=== PATIENT | female | born 1990 | race Caucasian/White ===

== ENCOUNTER 2020-02-11 08:18 | Outpatient (CLI) | payer OTHER, SELFPAY ==
--- NOTE | ~2020-02-11 | US_ITS ---
EXAMINATION: US pelvic complete w TV DATE: 02/11/2020 10:33 INDICATION: Menometrorrhagia TECHNIQUE: Multiple transabdominal and endovaginal sonographic images of the pelvis were obtained. COMPARISON: None. FINDINGS: The uterus measures 5.5 x 3.5 x 4.1 cm. The IUD is in expected position. The endometrial co mplex measures 6 mm. The right ovary measures 3.9 x 1.8 x 3.8 cm. The left ovary measures 3.1 x 1.7 x 3.0 cm. There is normal vascular flow in the ovaries. There is no free fluid in the pelvis. IMPRESSION: 1. No sonographic correlate for the patient's symptoms. Reviewed, dictated and finalized at location A.
[2020-02-11 08:42] LABS: Hematocrit 46.2 % (35.0-49.0); Hemoglobin 15.9 g/dL (12.0-15.0); Mean Corpuscular HGB Conc 34.4 g/dL (32.0-36.0); Mean Corpuscular Hemoglobin 33.9 pg (27.0-31.0); Mean Corpuscular Volume 98.5 fL (78.0-102.0); Mean Platelet Volume 10.5 fl (9.2-11.8); Platelet Count Result 285 K/mm3 (150-420); Red Blood Count 4.69 M/mm3 (4.20-5.40); Red Cell Distribution Width 12.7 % (11.6-14.4); White Blood Count 8.5 K/mm3 (4.8-10.8)
[2020-02-11 09:20] LABS: Alanine Aminotransferase 33 U/L (14-59); Albumin Level 4.1 g/dL (3.4-5.0); Alkaline Phosphatase 83 U/L (46-116); Anion Gap 16.5 mmol/L (7-16); Aspartate Amino Transferase 18 U/L (15-37); Bilirubin,Total 0.5 mg/dL (0.00-1.00); Blood Urea Nitrogen 9 mg/dL (7-18); Calcium 9.5 mg/dL (8.5-10.1); Carbon Dioxide 26 mmol/L (21-32); Chloride 103 mmol/L (98-108); Estimated Glomerular Filt Rate > 60; Glucose 86 mg/dL (70-99); Osmolality Calculated 289 mOsm/kg (285-295); Potassium 4.5 mmol/L (3.5-5.1); Sodium 141 mmol/L (136-145); Total Protein 7.6 g/dL (6.4-8.2)
[2020-02-11 10:19] LABS: Glucose 1 Hour 134 mg/dL (<180)
[2020-02-11 10:51] LABS: Glucose 2 Hour 145 mg/dL (<155)
[2020-02-11 11:06] LABS: Glucose Fasting 86 mg/dL (70-99)
[2020-02-14 12:20] LABS: DHEA-Sulfate 342 mcg/dL (18-391)
[2020-02-14 16:46] LABS: Testosterone Free 14.7 pg/mL (0.1-6.4); Testosterone Total 103 ng/dL (2-45)
== END 2020-02-11 08:19 | disposition home or self-care (01) ==
PROVIDERS: PCP Family Medicine; Visit Provider Obstetrics & Gynecology
DX: R63.5 Abnormal weight gain (principal); E28.2 Polycystic ovarian syndrome; N92.1 Excessive and frequent menstruation with irregular cycle
CPT/HCPCS: 36415; 76830; 76856; 80053; 82627; 82951; 83498; 84402; 84403; 84443; 85027

== ENCOUNTER 2020-06-03 08:48 | Outpatient (CLI) | payer OTHER, SELFPAY ==
[2020-06-08 16:19] LABS: Testosterone Free 4.6 pg/mL (0.1-6.4); Testosterone Total 52 ng/dL (2-45)
== END 2020-06-03 08:49 | disposition home or self-care (01) ==
LOC: CHSLAB 08:51
PROVIDERS: PCP Obstetrics & Gynecology; Visit Provider Obstetrics & Gynecology
DX: E28.2 Polycystic ovarian syndrome (principal)
CPT/HCPCS: 36415; 84402; 84403

== ENCOUNTER 2022-04-12 19:46 | Emergency (ER) | payer OTHER, SELFPAY ==
--- NOTE | ~2022-04-12 | CT_ITS ---
EXAMINATION: CT abdomen pelvis wo con DATE: 04/12/2022 21:21 INDICATION: RLQ abd pain. N/V TECHNIQUE: Computed tomography (CT) of the abdomen and pelvis was performed without intravenous contr ast. Automated exposure control and iterative reconstruction technique were employed. The dose-length product was 410.19 mGy-cm. COMPARISON: 08/15/16. FINDINGS: Lower thorax: Unremarkable Liver: Normal. Biliary/Gallbladder: Gallbladder is absent. No bile duct dilation. Pancreas: No mass or duct dilation. Spleen: Normal. Adrenals:No mass. Kidneys: No mass, stone, or hydronephrosis. GI tract: No small or large bowel dilation. Dilated, inflammed appendix. Mesentery/Peritoneum: No ascites, mass, or free air. Retroperitoneum: No mass. Pelvis: 6.9 cm simple left ovarian cyst, otherwise the pelvic organs are within normal limits. Soft Tissues: Soft tissues and body wall unremarkable. Bones: No acute osseous finding. IMPRESSION: Acute appendicitis. 6.9 cm left ovarian cyst, recommend outpatient follow-up pelvic ultrasound in 6-1 2 weeks. Reviewed, dictated and finalized at location K. IMPRESSION: Acute appendicitis. 6.9 cm left ovarian cyst, recommend outpatient follow-up pe lvic ultrasound in 6-12 weeks.
[2022-04-12 20:06] VITALS: BP 145/87; PULSE 98; RESP 17; TEMP 36.8; O2SAT 98
[2022-04-12 20:50] LABS: Basophils Absolute Auto 0.03 K/mm3 (0.00-0.10); Basophils Percent Auto 0.2 % (0.0-1.0); Eosinophils Absolute Auto 0.11 K/mm3 (0.02-0.50); Eosinophils Percent Auto 0.6 % (1.0-6.0); Hematocrit 41.9 % (35.0-49.0); Hemoglobin 14.3 g/dL (12.0-15.0); Immature Granulocyte Absolute 0.12 K/mm3 (0.00-0.00); Immature Granulocyte Percent A 0.7 % (0.0-0.0); Lymphocytes Absolute Auto 1.88 K/mm3 (1.10-4.50); Lymphocytes Percent Auto 10.2 % (18.0-42.0); Mean Corpuscular HGB Conc 34.1 g/dL (32.0-36.0); Mean Corpuscular Hemoglobin 34.1 pg (27.0-31.0); Mean Platelet Volume 10.1 fl (9.2-11.8); Monocytes Absolute Auto 1.19 K/mm3 (0.10-0.90); Monocytes Percent Auto 6.5 % (2.0-11.0); Neutrophils Absolute Auto 15.1 K/mm3 (1.7-7.2); Neutrophils Percent Auto 81.8 % (50.0-70.0); Platelet Count Result 292 K/mm3 (150-420); Red Blood Count 4.19 M/mm3 (4.20-5.40); Red Cell Distribution Width 12.1 % (11.6-14.4); White Blood Count 18.4 K/mm3 (4.8-10.8)
[2022-04-12 21:04] LABS: Alanine Aminotransferase 17 U/L (14-59); Albumin Level 3.5 g/dL (3.4-5.0); Alkaline Phosphatase 74 U/L (46-116); Anion Gap 7 mmol/L (8-16); Aspartate Amino Transferase 11 U/L (15-37); Bilirubin,Total 0.3 mg/dL (0.00-1.00); Blood Urea Nitrogen 7 mg/dL (7-18); Calcium 8.7 mg/dL (8.5-10.1); Carbon Dioxide 25 mmol/L (21-32); Chloride 104 mmol/L (98-108); Estimated CRCL calculation 85 ml/min; Estimated Glomerular Filt Rate > 60; Glucose 121 mg/dL (70-99); Lipase 94 U/L (73-393); Osmolality Calculated 281 mOsm/kg (285-295); Potassium 3.7 mmol/L (3.5-5.1); Sodium 136 mmol/L (136-145)
[2022-04-12] MEDS: SODIUM CHLORIDE 0.9% IV 1,000 ML 999 ML IV CONT (21:06)
[2022-04-12 21:07] LABS: SPREG INTERNAL CONTROL Positive; Serum Qual hCG Negative
[2022-04-12] MEDS: PANTOPRAZOLE SODIUM IV 40 MG VIAL IV PUSH (21:07)
[2022-04-12] MEDS: KETOROLAC (*BKC) 60 MG/2 ML VIAL IM (21:08)
[2022-04-12] MEDS: ONDANSETRON INJ 4 MG/2 ML VIAL IV PUSH (21:08)
[2022-04-12 21:09] LABS: Lactic Acid Reflex 0.8 mmol/L (0.4-2.0)
[2022-04-12 21:41] LABS: Add Urine Microscopic? NO; Appearance Urine Clear (Clear); Bilirubin Urine Negative (Negative); Blood Urine Negative (Negative); Color Urine Light Yellow (Yellow); Glucose Urine UA Negative (Negative); Ketones Urine Negative (Negative); Leukocyte Esterase Ur Negative LEU/UL (Negative); Nitrate Urine Negative (Negative); Protein Urine Negative (Negative); Urobilinogen Urine 0.2 mg/dL (0.2-1.0); pH Urine 6.5 (5.0-8.0)
--- NOTE | 2022-04-12 22:17 | PC.NURSE ---
nasal covid swab sent to lab
[2022-04-12 22:34] VITALS: BP 125/75; PULSE 86; RESP 17; O2SAT 97
[2022-04-12 22:45] VITALS: BP 114/77; PULSE 85; RESP 17; O2SAT 98
--- NOTE | 2022-04-12 22:51 | ED.ABDPAIN ---
HPI - Abdominal Pain General Chief Complaint: Abdominal Pain Stated Complaint: stomach pain/R lower side/nauseous/freezing Time Seen by Provider: 04/12/22 19:50 Source: patient and RN notes reviewed Mode of arrival: ambulatory Limitations: no limitations History of Present Illness MD elicited complaint: abdominal pain (RLQ) Pertinent past history: none Onset (ago): hour(s) (12) Pain Consistency: constant Location: RLQ Severity: moderate Pain scale (0-10): 7 Quality: cramping, aching and dull Radiation: none Migration to: suprapubic Exacerbating factors: nothing Relieving factors: nothing Associated symptoms: nausea, diarrhea and chills Related Data Patient : No Allergies Allergy/AdvReac Type Severity Reaction Status Date / Time No Known Allergies Allergy Verified 04/12/22 20:05 Review of Systems Review of Systems: All systems reviewed & are unremarkable except as noted in HPI and below Constitutional: Constitutional: Reports no additional constitutional complaints Eyes: Eyes: Reports no additional eye complaints ENT: Reports system reviewed and no additional complaints, except as documented Cardiovascular: Cardiovascular: Reports no additional cardiovascular complaints Respiratory: Respiratory: Reports no additional respiratory complaints Gastrointestinal: Gastrointestinal: Reports abdominal pain (RLQ) Genitourinary: Genitourinary: Reports no additional female genitourinary complaints Musculoskeletal: Musculoskeletal: Reports no additional musculoskeletal complaints Integumentary/Breasts: Skin/Breast: Reports system reviewed and no additional complaints, except as docu Neurologic: Reports system reviewed and no additional complaints, except as documented Psychiatric: Psychiatric: Reports no additional psychiatric complaints Endocrine: Endocrine: Reports no additional endocrine complaints Hematologic/Lymphatic: Hematologic/Lymphatic: Reports no additional hematologic/lymphatic complaints Allergic/Immunologic: Allergic/Immunologic: Reports no additional allergic/immunologic complaints [facility] Past Medical History Medical History Acute appendicitis Encounter for IUD insertion 10/21/10 Paragard insertion 07/28/16 Paragard insertion Encounter for IUD removal 04/21/14 Paragard removal 03/09/20 Paragard removal Gestational diabetes Kidney infection Pre-eclampsia Surgical History Surgical History History of 11/04/05 primary c/s--severe PIH/oligohydramnios/IUGR 05/18/16 rpt c/s--gestational diabetes History of cholecystectomy (~2006) History of tonsillectomy (~1999) Social History Social History Smoking packs per day: 0.75 Smoking cigarettes per day: 15.0 Smoking status: Current some day smoker ( not interested at this point an intervention. 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 Gender identity (if verbalized by the patient): Female Sexual Orientation (if Verbalized by the Patient): Straight or Heterosexual Exam Const: General: no acute distress Nutritional Appearance: well nourished Orientation/consciousness: patient oriented x3 Limitations: no limitations HENMT: Head: normal to inspection Ears: external ears normal, TM's normal bilaterally and EAC's normal General nose exam: Normal external nose present and Normal nares present Face and sinus: normal facial exam and sinuses nontender Mouth: Yes Normal oral and palatal mucosa present and Yes moist mucous membranes Teeth and gingiva: dentition
[2022-04-12 22:57] LABS: SARS-CoV-2 RNA PCR Negative (Negative)
[2022-04-12 23:00] VITALS: BP 129/82; PULSE 85; RESP 16; O2SAT 97
--- NOTE | 2022-04-12 23:08 | PC.NURSE ---
pt refusing to be transported to [facility] via Ambulance and wants to take a private vehicle. this staff member discussed the possible hazards of not being transported by ambulance. this staff member explained that the pt must remain NPO (nothing to eat or drink), her IV would be removed, and there is a possibility of sever complications developing from her diagnosis of an acute appendicitis. Pt's have a family friend who will transport her from [facility] to [facility] using a private vehicle.
[2022-04-13] VITALS: BP 115/72; PULSE 80; RESP 16; O2SAT 96
[2022-04-13 00:35] VITALS: BP 119/68; PULSE 70; RESP 16; TEMP 36.3; O2SAT 96
== END 2022-04-13 00:41 | disposition short-term general hospital (02) ==
PROVIDERS: Emergency Provider Emergency Medicine; PCP Family Medicine
DX: K35.80 Unspecified acute appendicitis (principal); Z20.822 Contact with and (suspected) exposure to COVID-19
CPT/HCPCS: 36415; 74176; 80053; 81003; 83605; 83690; 84703; 85025; 96361; 96365; 96372; 96375; 99285; C9113; C9803; J0696; J1885; J2405; J7030; U0003; U0005

== ENCOUNTER 2022-04-13 01:27 | Observation (INO) | payer OTHER, SELFPAY ==
[2022-04-13] VITALS (10 sets, daily range): BP systolic 115–142; BP diastolic 64–82; PULSE 58–97; RESP 16–26; TEMP 36.2–36.7; O2SAT 95–99; BMI 29.9
[2022-04-13] MEDS: SODIUM CHLORIDE 0.9% IV 1,000 ML 100 ML IV CONT ×2 (02:12→13:27)
--- NOTE | 2022-04-13 02:28 | ADMGEN ---
This patient, Fanny Jimenez, was admitted to [facility] Surg Room 321-01. Patient/family oriented to hospital policies and general routines including ID bracelet, bed and alarms, visiting hours, pain management, procedures, bathroom and other care routines, personal items, smoking policy, room service/diet, and visiting hours. Information on how to activate the Rapid Response Team has been discussed. Patient/Family are encouraged to report perceived risks to care and to ask questions if they do not understand what they are told or what they should do.
[2022-04-13 06:52] LABS: Hemoglobin 12.9 g/dL (12.0-15.0); Mean Corpuscular HGB Conc 33.1 g/dl (32-36); Mean Corpuscular Hemoglobin 33.2 pg (26-34); Mean Corpuscular Volume 100.5 fl (80-100); Mean Platelet Volume 10.2 fl (7.4-10.4); Platelet Count Result 265 k/mm3 (150-375); Red Blood Count 3.88 M/mm3 (4.2-5.4); Red Cell Distribution Width 12.5 % (11.5-14.5)
[2022-04-13 07:05] LABS: Anion Gap 6 mmol/L (8-16); Blood Urea Nitrogen 6 mg/dL (7-17); Calcium 8.5 mg/dL (8.4-10.2); Carbon Dioxide 22 mmol/L (22-30); Chloride 109 mmol/L (98-107); Estimated CRCL calculation 87 ml/min; Estimated Glomerular Filt Rate > 60; Glucose 89 mg/dL (65-110); Potassium 3.5 mmol/L (3.4-5.0); Sodium 137 mmol/L (137-145)
--- NOTE | 2022-04-13 10:07 | PM.IMHP ---
H&P: HPI History of Present Illness Date/Time: 04/13/22 09:07 Chief Complaint: RLQ abdominal pain Narrative: This is a 31-year-old woman who presented to [place] ED last night with complaints of right lower quadrant abdominal pain. She reports having more mild episodes of cramping right lower quadrant abdominal pain over the past year. Pain would last for 1 day and then resolve, therefore she never tried to seek medical attention for those episodes of pain. Yesterday, around 1:00 p.m., she developed sharp, more severe right lower quadrant abdominal pain than the other episodes. This was aggravated by coughing and movement. She had associated nausea and dry heaving. Denies fever or chills. She then went to the ER for further evaluation. CT scan of the abdomen and pelvis showed acute appendicitis with no evidence of perforation, and a 6.9 cm left ovarian cyst. [place] [id number]. Serum HCG negative. Our service was contacted by the ED physician and the patient was directly transferred to [place] for surgical evaluation of acute appendicitis. She is now seen on the medical floor. She continues to have right lower quadrant abdominal pain that is currently being controlled with analgesics. No nausea at this time. No other complaints at this time. She has had 2 deliveries and a laparoscopic cholecystectomy in the past. Review of Systems Review of Systems: All systems reviewed & are unremarkable except as noted in HPI and below Constitutional: Constitutional: Reports as per HPI, Reports no additional constitutional complaints, Denies chills, Denies fatigue, Denies fever(s), Reports headache(s) and Denies weakness Eyes: Eyes: Reports no additional eye complaints and Denies change in vision ENT: Reports system reviewed and no additional complaints, except as documented and Reports Normal hearing present Cardiovascular: Cardiovascular: Reports no additional cardiovascular complaints, Denies chest pain and Denies leg edema Respiratory: Respiratory: Reports no additional respiratory complaints, Denies cough and Denies dyspnea Gastrointestinal: Gastrointestinal: Reports as per HPI, Reports no additional gastrointestinal complaints, Reports abdominal pain, Denies melena, Denies hematochezia, Denies change in bowel habits, Denies change in stool character, Denies diarrhea, Reports nausea and Denies vomiting Genitourinary: Genitourinary: Reports no additional female genitourinary complaints, Denies hematuria and Denies dysuria Musculoskeletal: Musculoskeletal: Reports no additional musculoskeletal complaints Integumentary/Breasts: Skin/Breast: Reports system reviewed and no additional complaints, except as docu Neurologic: Reports system reviewed and no additional complaints, except as documented, Denies dizziness, Denies focal weakness, Denies numbness and Denies tingling PMFSH Past Medical History Medical History (Updated 04/13/22 @ 10:16 by MECCA Fritz) Encounter for IUD insertion 10/21/10 Paragard insertion 07/28/16 Paragard insertion Encounter for IUD removal 04/21/14 Paragard removal 03/09/20 Paragard removal Gestational diabetes Kidney infection Pre-eclampsia Surgical History Surgical History History of 11/04/05 primary c/s--severe PIH/oligohydramnios/IUGR 05/18/16 rpt c/s--gestational diabetes History of cholecystectomy (~2006) History of tonsillectomy (~1999) Family History Family History Other No pertinent family history Social History Social History Smoking packs per day: 0.5 Smoking cigarettes per day: 10.0 Years smoked: 16 Smoking pack-years: 8.00 Smoking status: Heavy tobacco smoker Tobacco type: cigarettes Second hand tobacco smoke exposure: Yes Alcohol int
--- NOTE | 2022-04-13 12:14 | WPDANESEPPF ---
Anes - Initial Pre Proc Eval Procedure: Operation Date: 04/13/22 15:30 Proposed Procedures p Laparoscopic Appendectomy; Possible Open - Cathy Morton MD Date/Time: 04/13/22 12:14 Surgeon: Cathy Morton MD Pre Op Diagnosis: Acute Appendicitis Patient Data Age: 31 Gender: F Height: 1.6 m Weight: 76.6 kg Last Vital Signs Temp 36.6 C 04/13/22 05:37 Pulse 81 04/13/22 05:37 Resp 18 04/13/22 05:37 BP 115/64 04/13/22 05:37 Pulse Ox 99 04/13/22 05:37 O2 Del Method Room Air 04/13/22 08:00 Allergies Allergy/AdvReac Type Severity Reaction Status Date / Time No Known Allergies Allergy Verified 04/12/22 20:05 Home Medications Medication Instructions Recorded Confirmed Type norgestimate 0.25 mg-ethinyl 1 tablet PO DAILY #84 tabs 04/11/22 04/13/22 Rx estradiol 35 mcg tablet (Sprintec (28)) Laboratory Tests 04/13/22 04/13/22 06:27 06:27 WBC 12.0 K/mm3 H K/mm3 (4.5-10.0) RBC 3.88 M/mm3 L M/mm3 (4.2-5.4) Hgb 12.9 g/dL g/dL (12.0-15.0) Hct 39.0 % % (37.0-47.0) MCV 100.5 fl H fl (80-100) MCH 33.2 pg pg (26-34) MCHC 33.1 g/dl g/dl (32-36) RDW 12.5 % % (11.5-14.5) Plt Count 265 k/mm3 k/mm3 (150-375) MPV 10.2 fl fl (7.4-10.4) Sodium 137 mmol/L mmol/L (137-145) Potassium 3.5 mmol/L mmol/L (3.4-5.0) Chloride 109 mmol/L H mmol/L (98-107) Carbon Dioxide 22 mmol/L mmol/L (22-30) Anion Gap 6 mmol/L L mmol/L (8-16) BUN 6 mg/dL L mg/dL (7-17) Creatinine 0.80 mg/dL mg/dL (0.7-1.0) Estim Creat Clear Calc 87 ml/min ml/min Estimated GFR > 60 (59 - ) Glucose 89 mg/dL mg/dL (65-110) Calcium 8.5 mg/dL mg/dL (8.4-10.2) Patient hx anesthesia problems: none Family hx anesthesia problems: none Results Review: All pre-operative results and documents have been reviewed as part of the pre-operative evaluation. [facility] Past Medical History Medical History (Updated 04/13/22 @ 10:16 by MECCA Fritz) Encounter for IUD insertion 10/21/10 Paragard insertion 07/28/16 Paragard insertion Encounter for IUD removal 04/21/14 Paragard removal 03/09/20 Paragard removal Gestational diabetes Kidney infection Pre-eclampsia Surgical History Surgical History History of 11/04/05 primary c/s--severe PIH/oligohydramnios/IUGR 05/18/16 rpt c/s--gestational diabetes History of cholecystectomy (~2006) History of tonsillectomy (~1999) Family History Family History Other No pertinent family history Social History Social History Smoking packs per day: 0.5 Smoking cigarettes per day: 10.0 Years smoked: 16 Smoking pack-years: 8.00 Smoking status: Heavy tobacco smoker Tobacco type: cigarettes Second hand tobacco smoke exposure: Yes Alcohol intake: never Substance use: never Substance use type: does not use Additional living arrangements comments: single/ same partner for 12 years 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 Gender identity (if verbalized by the patient): Female Sexual Orientation (if Verbalized by the Patient): Straight or Heterosexual Spiritual care concerns: No Anes - Eval Final PreProcedure Day of Procedure 04/13/22 12:14 Patient weight: overweight Heart: regular rate and rhythm Lungs: clear to auscultation and normal air movement Airway: Mallampati scale class II Neurological: alert and oriented Last oral intake: >/= 8 hours ASA classification: II Emergent: no Anesthetic plan: proceed Anesthesia type and monitoring: general ETT Results Review: All pre-operative results and documents have been reviewed as part of the pre-operative evaluation. Informed
[2022-04-13] MEDS: LACTATED RINGERS 1,000 ML 30 ML IV CONT (14:53)
[2022-04-13] MEDS: KETOROLAC 15 MG/ML VIAL (*BKC) IV PUSH (15:00)
--- NOTE | 2022-04-13 15:01 | WPDHPUPDATE1 ---
History and Physical Update Update Date/Time: 04/13/22 15:01 History and Physical has been reviewed, including an updated exam of the patient. There are NO changes in the patient's condition. Risks, benefits, and alternatives have been discussed and questions answered. Patient agrees to proceed with procedure.
--- NOTE | 2022-04-13 16:43 | W.PM.PROC2 ---
Procedure Note - Detailed Date of Procedure 04/13/22 Pre-op Diagnosis Acute Appendicitis Post-op Diagnosis Same Procedure Performed laparoscopic appendectomy Surgeon Cathy Morton MD Anesthesia General Indications 31-year-old female presenting to the hospital with acute appendicitis. Findings acute appendicitis no evidence of perforation Description of Procedure The patient was taken to the operating room and placed in the supine position. After adequate induction of general anesthesia, the patient was prepped and draped in the normal sterile fashion. A time-out was then done to verify the patient's identity, as well as the procedure being performed. I began by making a 5 mm incision in the infraumbilical region, through this a Veress needle was placed in the peritoneal cavity. CO2 gas was then insufflated and after adequate pneumoperitoneum was achieved the Veress needle was removed. Then placed a 5 mm Optiview trocar under direct visualization into the peritoneal cavity. I then insufflated through this trocar site and the endoscope was placed into the trocar. Under direct visualization, placed 2 further 5 mm suprapubic port as well as an additional 12 mm port in the left lower abdomen. At this point identified the cecum, I retracted the cecum both medially and superiorly allowing me to expose the appendix. The appendix was noted to be dilated and inflamed. I then was able to locate the base of the appendix with the cecum. I created a window with the [place] dissector between the appendix itself and the mesoappendix. I then transected the mesoappendix with a white vascular staple load. Of note, there was a small arterial bleeder at the staple line. I was able to control this with cautery. The Endo-PARUL was then reloaded with a blue staple load and I transected the base of the appendix. Once the specimen was completely detached, an endo-pouch was placed into the 12 mm port site and the specimen was removed through the endo-pouch. The appendiceal specimen will be sent to pathology for further review. I then copiously irrigated the right lower quadrant. Hemostasis was noted at both staple lines no other pathology was seen in this area. I then moved the camera to the suprapubic port to check our its port of entry. No iatrogenic injury or other pathology was noted in the upper abdomen. I then closed the 12 mm port site with a Rey code and 0 Vicryl suture under direct visualization. At this point, the abdomen was desufflated and all ports were removed. All port sites were closed with 4 Monocryl subcuticular suture. Dermabond was placed on all wounds. The patient tolerated the procedure well and was extubated in the operating room postop. She will be sent to the recovery room in stable condition. Estimated Blood Loss 25 Urine Output 450 Drains No Packing No Pathology Yes Complications No immediate complications Condition Stable Disposition PACU [facility] Billing Surgery - Charge Forward: Surgery Billing
== END 2022-04-13 19:39 | disposition home or self-care (01) ==
PROVIDERS: Admitting Provider Surgery; PCP Family Medicine; Visit Provider Surgery
PROC: 0DTJ4ZZ Resection of Appendix, Percutaneous Endoscopic Approach (ICD-10-PCS; CPT 44970; principal; 2022-04-13 15:30)
DX: K35.80 Unspecified acute appendicitis (principal); N83.202 Unspecified ovarian cyst, left side; F17.210 Nicotine dependence, cigarettes, uncomplicated; E66.3 Overweight; Z68.29 Body mass index [BMI] 29.0-29.9, adult; Z79.3 Long term (current) use of hormonal contraceptives
CPT/HCPCS: 44970; 36415; 80048; 85027; 88304; 96361; 96365; 96375; G0378; G0379; J0131; J1100; J1885; J2250; J2405; J2543; J2704; J2710; J3010; J7030; J7120

== ENCOUNTER 2022-05-04 12:19 | Outpatient (CLI) | payer OTHER, SELFPAY ==
--- NOTE | ~2022-05-04 | US_ITS ---
EXAMINATION: US pelvic complete w TV DATE: 05/04/2022 13:50 INDICATION: Unspecified ovarian cyst, left side. TECHNIQUE: Multiple transabdominal and transvaginal sonographic images of the pelvis were obtained. COMPARISON: CT abdomen and pelvis 04/12/2022, pelvis ultrasound 02/11/2020 FINDINGS: TRANSABDOMINAL ULTRASOUND: The uterus measures 10.2 x 4.2 x 4.0 cm. There is no free fluid in the pelvis. TRANSVAGINAL ULTRASOUND: The endometrial complex measures 2 mm in thickness. The right ovary measures 3.4 x 3.1 x 2.1 cm. The left ovary measures 3.3 x 2.6 x 3.4 cm. There is normal vascular flow in the ovaries. IMPRESSION: 1. Normal pelvis. Interval resolution of the left ovarian cyst. Reviewed, dictated and finalized at location A.
== END 2022-05-04 12:20 | disposition home or self-care (01) ==
LOC: CHSIMG 12:20
PROVIDERS: PCP Family Medicine; Visit Provider Obstetrics & Gynecology
DX: N83.202 Unspecified ovarian cyst, left side (principal)
CPT/HCPCS: 76830; 76856

== ENCOUNTER 2023-04-28 08:39 | Outpatient (CLI) | payer OTHER, SELFPAY ==
[2023-04-28 09:04] LABS: Basophils Absolute Auto 0.03 K/mm3 (0.00-0.10); Basophils Percent Auto 0.6 % (0.0-1.0); Eosinophils Absolute Auto 0.18 K/mm3 (0.02-0.50); Eosinophils Percent Auto 3.6 % (1.0-6.0); Hematocrit 46.3 % (35.0-49.0); Hemoglobin 15.5 g/dL (12.0-15.0); Immature Granulocyte Absolute 0.02 K/mm3 (0.00-0.00); Immature Granulocyte Percent A 0.4 % (0.0-0.0); Lymphocytes Absolute Auto 1.92 K/mm3 (1.10-4.50); Lymphocytes Percent Auto 37.9 % (18.0-42.0); Mean Corpuscular HGB Conc 33.5 g/dL (32.0-36.0); Mean Corpuscular Hemoglobin 33.5 pg (27.0-31.0); Mean Corpuscular Volume 100.2 fL (78.0-102.0); Mean Platelet Volume 10.1 fl (9.2-11.8); Monocytes Absolute Auto 0.54 K/mm3 (0.10-0.90); Monocytes Percent Auto 10.7 % (2.0-11.0); Neutrophils Absolute Auto 2.4 K/mm3 (1.7-7.2); Neutrophils Percent Auto 46.8 % (50.0-70.0); Platelet Count Result 259 K/mm3 (150-420); Red Blood Count 4.62 M/mm3 (4.20-5.40); Red Cell Distribution Width 12.6 % (11.6-14.4); White Blood Count 5.1 K/mm3 (4.8-10.8)
[2023-04-28 09:14] LABS: Hemoglobin A1C 5.2 % (<5.7)
[2023-04-28 09:18] LABS: Alanine Aminotransferase 22 U/L (14-59); Albumin Level 3.4 g/dL (3.4-5.0); Alkaline Phosphatase 72 U/L (46-116); Anion Gap 9 mmol/L (8-16); Aspartate Amino Transferase 19 U/L (15-37); Bilirubin,Total 0.2 mg/dL (0.00-1.00); Blood Urea Nitrogen 9 mg/dL (7-18); Calcium 9.1 mg/dL (8.5-10.1); Carbon Dioxide 25 mmol/L (21-32); Chloride 107 mmol/L (98-108); Estimated Glomerular Filt Rate > 60; Glucose 96 mg/dL (70-99); Osmolality Calculated 290 mOsm/kg (285-295); Potassium 4.5 mmol/L (3.5-5.1); Sodium 141 mmol/L (136-145)
[2023-04-28 10:15] LABS: Glucose 1 Hour 204 mg/dL (<180)
[2023-04-28 10:42] LABS: Glucose Fasting 96 mg/dL (70-99)
[2023-04-28 11:13] LABS: Glucose 2 Hour 172 mg/dL (<155)
[2023-05-02 13:01] LABS: Testosterone Free 3.2 pg/mL (0.1-6.4); Testosterone Total 52 ng/dL (2-45)
[2023-05-02 20:29] LABS: DHEA-Sulfate 299 mcg/dL (23-266)
== END 2023-04-28 08:40 | disposition home or self-care (01) ==
PROVIDERS: PCP Family Medicine; Visit Provider Obstetrics & Gynecology
DX: E28.2 Polycystic ovarian syndrome (principal)
CPT/HCPCS: 36415; 80053; 82627; 82951; 83036; 84402; 84403; 85025

== ENCOUNTER 2023-06-06 09:42 | Outpatient (CLI) | payer OTHER, SELFPAY ==
[2023-06-06 10:24] LABS: Potassium 4.7 mmol/L (3.5-5.1)
== END 2023-06-06 09:43 | disposition home or self-care (01) ==
PROVIDERS: PCP Family Medicine; Visit Provider Obstetrics & Gynecology
DX: E87.6 Hypokalemia (principal)
CPT/HCPCS: 36415; 84132

== ENCOUNTER 2025-04-29 10:44 | Outpatient (CLI) | payer OTHER, SELFPAY ==
[2025-04-29 11:13] LABS: Hemoglobin A1C 5.1 % (<5.7)
[2025-04-29 11:39] LABS: Free T4 Free Thyroxine 1.00 ng/dL (0.78-2.19)
[2025-04-29 11:53] LABS: Thyroid Stimulating Hormone 1.610 uIU/mL (0.465-4.680)
[2025-05-07 00:07] LABS: Free Testosterone (Direct) 0.7 pg/mL (0.0-4.2)
== END 2025-04-29 10:45 | disposition home or self-care (01) ==
LOC: CHSLAB 10:46
PROVIDERS: PCP Family Medicine; Visit Provider Obstetrics & Gynecology
DX: E28.2 Polycystic ovarian syndrome (principal)
CPT/HCPCS: 36415; 82627; 83036; 83498; 84402; 84403; 84439; 84443

== ENCOUNTER 2025-05-30 03:45 | Emergency (ER) | payer OTHER, SELFPAY ==
[2025-05-30 03:45] VITALS: BP 171/109; PULSE 103; RESP 18; TEMP 36.2; O2SAT 98
--- NOTE | 2025-05-30 03:53 | ED_ITS ---
HPI - Ear Problem General Chief complaint: Ear Stated complaint: ear pain Time Seen by Provider: 05/30/25 03:53 Source: patient Mode of arrival: ambulatory Limitations: no limitations History of Present Illness HPI Narrative: 34-year-old female presents to the ED with a 4 day history of -- right ear pain. no discharge P patient went to primary care physician yesterday and was prescribed Cipro/ dexamethasone ear drops she presents with worsening right ear pain MD Complaint: ear pain Location: right ear Duration: constant Severity: severe Relieving factors: nothing Exacerbating factors: nothing Discharge from ear: Reports no Treatment prior to arrival: eardrops Related Data Allergies Allergy/AdvReac Type Severity Reaction Status Date / Time No Known Allergies Allergy Verified 05/30/25 03:51 Review of Systems Review of Systems: All systems reviewed & are unremarkable except as noted in HPI and below Constitutional: Constitutional: Reports as per HPI and Reports no additional constitutional complaints Eyes: Eyes: Reports as per HPI and Reports no additional eye complaints ENT: Reports system reviewed and no additional complaints, except as documented and Reports as per HPI Cardiovascular: Cardiovascular: Reports as per HPI and Reports no additional cardiovascular complaints Respiratory: Respiratory: Reports as per HPI and Reports no additional respiratory complaints Gastrointestinal: Gastrointestinal: Reports as per HPI and Reports no additional gastrointestinal complaints Genitourinary: Genitourinary: Reports no additional female genitourinary complaints and Reports as per HPI Musculoskeletal: Musculoskeletal: Reports no additional musculoskeletal complaints and Reports as per HPI Integumentary/Breasts: Skin/Breast: Reports system reviewed and no additional complaints, except as docu and Reports as per HPI Neurologic: Reports system reviewed and no additional complaints, except as documented and Reports as per HPI Psychiatric: Psychiatric: Reports no additional psychiatric complaints and Reports as per HPI Endocrine: Endocrine: Reports no additional endocrine complaints and Reports as per HPI Hematologic/Lymphatic: Hematologic/Lymphatic: Reports no additional hematologic/lymphatic complaints and Reports as per HPI Allergic/Immunologic: Allergic/Immunologic: Reports no additional allergic/immunologic complaints and Reports as per HPI PMFSH Past Medical History Medical History Encounter for IUD removal 04/21/14 Paragard removal 03/09/20 Paragard removal Encounter for IUD insertion 10/21/10 Paragard insertion 07/28/16 Paragard insertion Kidney infection Pre-eclampsia Gestational diabetes Surgical History Surgical History S/P laparoscopic appendectomy (04/13/22) 04/13/22 History of cholecystectomy (~2006) History of 11/04/05 primary c/s--severe PIH/oligohydramnios/IUGR 05/18/16 rpt c/s--gestational diabetes History of tonsillectomy (~1999) Family History Family History Other No pertinent family history Social History Social History Smoking packs per day: 1 Smoking cigarettes per day: 20.0 Years smoked: 16 Smoking pack-years: 16.00 Smoking status: Heavy tobacco smoker Tobacco type: cigarettes Second hand tobacco smoke exposure: Yes Alcohol intake: never Substance use: never Substance use type: does not use Do You Feel Safe in your Home?: Yes Lack of Transportation: No Lack of Food: Never True Current Housing: I Have Housing Concerned About Future Housing: No Difficulty Paying Gas/Electric Bills: No Difficulty Paying for Meds: No Currently Unemployed: No Education: High School Diploma/GED Difficulty w/ Childcare or Family Care: No Living arrangements: other Additional living arrangements comments: single/ same partner for 14years Occupation/Education: 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 Afebrile. Oxygen saturation 98% Const: General: ill appearing Orientation/consciousness: patient oriented x3 Limitations: no limitations HENMT: Head: normal to inspection Ears: TM's normal bilaterally ( left ear TM normal. Unable to visualize the right TM) and Abnormal EAC present ( Right ear otitis externa. Tenderness over the tragus. ) Face/Nose/Sinus: Normal external nose present Face and sinus: normal facial exam Mouth: Yes Normal oral and palatal mucosa present Throat: posterior oropharynx normal Eyes: Conjunctivae: conjunctivae normal Pupils: Equal, round and reactive pupils present EOM: EOMs intact bilaterally Direct Ophthalmoscopy: no photophobia Neck: Neck: normal visual inspection, no lymphadenopathy and no meningeal signs Chest: Chest palpation & inspection: normal inspection of the chest Resp: Effort & Inspection: normal respiratory effort Auscultation: clear to auscultation bilaterally Cardio: Rate: regular rate Rhythm: regular rhythm GI: GI Palp: Yes Soft to palpation Auscultation: normal bowel sounds : General: Yes bladder normal to palpation and Yes no CVA tenderness Skin: General skin exam: normal color Rashes: no rashes Wounds: no wounds Neuro: General: patient oriented x3, moves all extremities, no meningeal signs, no focal motor deficits and CN's II-XI intact bilaterally Cranial nerves: Yes Nystagmus not present Speech: normal speech Extrem: General: normal to inspection and no clubbing, cyanosis or edema Psych: Mental Status: mental status grossly normal Affect: normal affect Course Course Emergency Course: right otitis externa with severe pain Vital Signs Vital signs: Vital Signs Temperature 36.2 C L 05/30/25 03:45 Pulse Rate 103 H 05/30/25 03:45 Respiratory Rate 18 05/30/25 03:45 Blood Pressure 171/109 H 05/30/25 03:45 Pulse Oximetry 98 05/30/25 03:45 Oxygen Delivery Room Air 05/30/25 03:45 Temperature 36.2 C L 05/30/25 03:45 Pulse Rate 103 H 05/30/25 03:45 Respiratory Rate 18 05/30/25 03:45 Blood Pressure 171/109 H 05/30/25 03:45 Pulse Oximetry 98 05/30/25 03:45 Oxygen Delivery Room Air 05/30/25 03:45 Medical Decision Making [facility] Narrative Medical decision making narrative: right otitis externa Differential Diagnosis Differential Diagnosis: otitis media Vital Signs Vital Signs: Vital Signs Temperature 36.2 C L 05/30/25 03:45 Pulse Rate 103 H 05/30/25 03:45 Respiratory Rate 18 05/30/25 03:45 Blood Pressure 171/109 H 05/30/25 03:45 Pulse Oximetry 98 05/30/25 03:45 Oxygen Delivery Room Air 05/30/25 03:45 Temperature 36.2 C L 05/30/25 03:45 Pulse Rate 103 H 05/30/25 03:45 Respiratory Rate 18 05/30/25 03:45 Blood Pressure 171/109 H 05/30/25 03:45 Pulse Oximetry 98 05/30/25 03:45 Oxygen Delivery Room Air 05/30/25 03:45 Discharge Plan Discharge Clinical Impression: Otitis externa Patient Disposition: Home Condition: Stable Instructions: Antibiotic Form, Swimmer's Ear (AC) Patient Language: Hungarian Prescriptions: New hydrocodone-acetaminophen 5-325 mg tablet 1 tablet PO Q6H PRN (Reason: pain) Qty: 10 0RF amoxicillin-pot clavulanate 875-125 mg tablet 1 tablet PO Q12H Qty: 14 0RF No Action norgestimate-ethinyl estradiol [Sprintec (28)] 0.25-0.035 mg tablet 1 tablet PO DAILY Qty: 84 3RF Follow-up/Referrals: Abdoul Mckeon MD [Primary Care Provider, Internal Medicine] Time of Disposition: 04:10
[2025-05-30] MEDS: ONDANSETRON HCL ODT 4 MG TABLET PO (04:03)
[2025-05-30] MEDS: HYDROmorphone HCL INJ (*CRX) 2 MG/ML VIAL 0.5 MG IM (04:06)
[2025-05-30 04:19] VITALS: BP 159/99; PULSE 95; RESP 18; O2SAT 98
[2025-05-30 04:31] VITALS: BP 155/98; PULSE 84; RESP 18; TEMP 36.9; O2SAT 98
== END 2025-05-30 04:31 | disposition home or self-care (01) ==
LOC: CHSED 04:20
PROVIDERS: Emergency Provider Internal Medicine Critical Care Medicine; PCP Family Medicine
DX: H60.91 Unspecified otitis externa, right ear (principal); F17.210 Nicotine dependence, cigarettes, uncomplicated
CPT/HCPCS: 96372; 99283; A9270; J1171